=== PATIENT | male | born 2000 | race Caucasian/White ===

== ENCOUNTER 2019-10-20 11:56 | Emergency (ER) | payer SELFPAY ==
[2019-10-20 11:58] VITALS: BP 114/59; PULSE 88; RESP 17; TEMP 37.3; O2SAT 95; BMI 21.4
[2019-10-20 12:40] VITALS: PULSE 96; RESP 20
[2019-10-20] MEDS: Ipratropium/Albuterol Sulfate 3 ML AMPUL.NEB INHALATION (12:40)
--- NOTE | 2019-10-20 12:40 | RAD_ITS ---
STUDY: X-RAY CHEST REASON FOR EXAM: Male, 19 years old. Fever TECHNIQUE: Frontal and lateral views of the chest COMPARISON: None. FINDINGS: The lungs are clear. There are no pleural effusions. There is no pneumothorax. The heart is normal in size. The visualized osseous structures are within normal limits. RAD/Chest PA and Lateral IMPRESSION: No acute thoracic pathology. Electronically Signed: Cuco Marcial, at 13:16 EST Tel , Service support ,
--- NOTE | 2019-10-20 12:42 | ED.VIS.GEN ---
History of Present Illness Chief Complaint: Cough Informant: Patient, Family Onset: Days Maximum Severity: Mild Narrative: Patient's been ill for 3 days with body aches harsh cough fever symptoms seem to intensify with more of the symptoms today he presents for evaluation, he indicates he believes he has the flu he is not been out of the country is not been exposed and was specifically with any type of illness, he has no past history his chief complaint is body aches runny nose and harsh cough Past Medical History - Allergies and Home Meds Allergies/Adverse Reactions: Allergies No Known Allergies Allergy (Verified 11/08/13 23:24) Primary Care Physician: Care Physician,No Primary [Primary Care Provider] - Past Medical History: None Smoking Status: Unknown if ever smoked Review of Systems General: Denies: Chills, Fever, Sweats Eyes: Denies: Visual changes - bilaterally, Diplopia ENT: Reports: Rhinorrhea. Denies: Sore throat Cardiovascular: Denies: Chest pain, Palpitations Respiratory: Reports: Cough. Denies: Dyspnea, Dyspnea on exertion Gastrointestinal: Denies: Abdominal pain, Nausea, Vomiting, Diarrhea, Melena, Hematochezia Genitourinary: Denies: Dysuria, Hematuria, Frequency Musculoskeletal: Reports: Myalgias. Denies: Back pain, Extremity Pain Skin: Denies: Rash, Wounds Neurological: Denies: Headache, Weakness, Numbness Physical Exam Vital Signs/Narrative: Vital Signs Temp Pulse Resp BP Pulse Ox 10/20/19 11:58 99.2 F H 88 17 114/59 L 95 General: Well nourished, Well developed, No Acute Distress Head: Normocephalic, Atraumatic Eyes: Perrl, EOMI ENT: Moist mucous membranes, No rhinorrhea Neck: Supple, Nontender Cardiovascular: Regular rate, Regular rhythm, No murmurs Respiratory: No distress, Chest nontender, Wheezing, - - Very harsh cough that is dry nonproductive his pulse ox is unremarkable his temperature is 99 he is awake and alert he is been eating and drinking without difficulty Abdomen: Soft, Nontender, Nondistended, Normal bowel sounds Back: Nontender, Normal Inspection Extremities: Nontender, No edema Skin: Normal color, No rash Neurological: Alert, Oriented x3, Cranial nerves II-XII grossly intact, Normal Strength, Normal Sensation Psychological: Normal affect, Normal Mood Diagnostic/Tx/Re-eval - Medical Decision Making All the above chest x-ray aerosols he has no exposures to anyone who is been ill is not been out of country Chest x-ray is unremarkable on reevaluation he is in no distress at this time he understands the concept of viral illness other conditions that could be causing his symptoms he will be started on Proventil inhalers Mucinex Flonase and follow-up with outpatient providers return for change in symptoms\\\\ Home stable Final impression URI with harsh cough ED Disposition - Plan for ED Patient: Diagnosis: uri Instructions: BRONCHITIS, No Antibiotic (Adult) Prescriptions: Fluticasone Propionate [Flonase Allergy Relief] 15.8 ml NS BID #1 spray.susp Prescription Printed Guaifenesin [Mucinex] 600 mg PO BID #20 tab.er.12h Prescription Printed Albuterol Inhaler [Ventolin Hfa] 1 - 2 puff INHALATION Q4H PRN PRN #1 inhaler PRN Reason: Wheezing Prescription Printed Referrals: Care Physician,No Primary [Primary Care Provider] - Mahi Qureshi [NON-STAFF] -
--- NOTE | 2019-10-20 13:02 | ED.RN ---
pt refused toradol injection after drawn up. amount disposed of in RX destroyer.
[2019-10-20 13:47] VITALS: PULSE 83; O2SAT 99
== END 2019-10-20 13:53 | disposition home or self-care (01) ==
LOC: ED 13:02
PROVIDERS: Emergency Provider Emergency Medicine
DX: J06.9 Acute upper respiratory infection, unspecified (principal)
CPT/HCPCS: 71046; 94640; 99282